=== PATIENT | male | born 1970 | race African-American/Black ===

== ENCOUNTER 2016-09-18 10:09 | Inpatient (IN) | payer MEDICAID, OTHER ==
[~2016-09-18] VITALS: Ht 180.3 cm; Wt 105.7 kg
[2016-09-18] MEDS ORDERED: ACETAMINOPHEN 650MG SUPP PR STA (10:19)
[2016-09-18] MEDS ORDERED: CEFTRIAXONE 1 G PREMIX 50 ML IV ONE ×2 (10:30→12:45)
[2016-09-18] MEDS ORDERED: LEVETIRACETAM 500MG PREMIX 100 ML IV ONE (10:30)
[2016-09-18] MEDS ORDERED: SODIUM CHLORIDE 0.9% 1000ML BAG (SEPSIS BOLUS) IV ONE (10:30)
[2016-09-18 10:54] LABS: BASOPHILS % 0.4 % (0.0-2.0); EOSINOPHILS % 0.1 % (0.0-5.0); HEMATOCRIT. 38.2 % (42.0-52.0); HEMOGLOBIN. 12.7 g/dL (14.0-18.0); LYMPHOCYTES % 7.5 % (20.0-50.0); MEAN CORPUSCULAR HEMOGLOBIN 29.1 pg (28.0-32.0); MEAN CORPUSCULAR VOLUME 87.8 fL (80.0-94.0); MEAN PLATELET VOLUME 8.4 fl (7.4-10.4); PLATELET 237 x1000/uL (130-400); RED BLOOD CELL COUNT 4.36 mill/uL (4.7-6.1); RED CELL DISTRIBUTION WIDTH 14.8 % (11.6-14.6)
[2016-09-18 11:01] LABS: INR 1.1; PROTHROMBIN TIME 11.1 sec
[2016-09-18 11:11] LABS: CARBON DIOXIDE 27 mEq/L (21-32); CHLORIDE 105 mEq/L (98-107)
[2016-09-18] MEDS ORDERED: LORAZEPAM 2MG/ML CPJ ONE (11:12)
[2016-09-18] MEDS ORDERED: MIDAZOLAM HCL 2 MG/2 ML VIAL IV ONE (12:45)
[2016-09-18] MEDS ORDERED: AZITHROMYCIN 500 MG in DEXT 5% WATER 250 ML IV SCH (12:45)
[2016-09-18 12:55] LABS: BG BASE EXCESS 1.2 mmol/L (-2.0-2.0); BG CARBOXYHEMOGLOBIN 0.1 % (0.5-1.5); BG DEOXYHEMOGLOBIN 0.6 % (0.0-5.0); BG FRACTION INSPIRED OXYGEN 100; BG HCO3 ACT 27.1 mmol/L (22.0-26.0); BG METHEMOGLOBIN 0.1 % (0.0-1.5); BG OXYGEN SATURATION 99.4 % (92.0-98.5); BG OXYHEMOGLOBIN 99.2 % (94.0-97.0); BG PCO2 47.6 mmHg (35.0-45.0); BG PH 7.373 (7.350-7.450); BG PO2 253.7 mmHg (75.0-100.0); BG SAMPLE SITE RIGHT RADIAL; BG TIDAL VOLUME(mL) 500 mL; BG TOTAL HEMOGLOBIN 14.1 g/dL (12.0-18.0); BG VENT MODE VENT - A/C; BG VENT RATE 12 set
[2016-09-18 13:45] LABS: CLARITY URINE CLEAR (CLEAR); COLOR URINE YELLOW (YELLOW); KETONES URINE NEGATIVE (NEGATIVE); LEUKOCYTE ESTERASE URINE NEGATIVE (NEGATIVE); NITRITE URINE NEGATIVE (NEGATIVE); OCCULT BLOOD URINE NEGATIVE (NEGATIVE); PH URINE 7.5 (4.5-8.0); PROTEIN URINE 1+ (NEGATIVE); SPECIFIC GRAVITY URINE 1.018 (1.005-1.030); UROBILINOGEN URINE 0.2 E.U./dL (0.2-1.0)
[2016-09-18] MEDS ORDERED: IPRATROPIUM/ALBUTEROL 0.5-3(2.5)MG/3ML NEB HHN PRN (13:45)
[2016-09-18] MEDS ORDERED: LORAZEPAM 2MG/ML CPJ IV ONE ×3 (14:30→15:00)
[2016-09-18] MEDS ORDERED: PHENYTOIN SODIUM 500 MG in SODIUM CHLORIDE 0.9% 50 ML IV NR (17:30)
[2016-09-18] MEDS: LORAZEPAM 2MG/ML CPJ IV PRN (18:31)
[2016-09-18] MEDS: PIPERACILLIN/TAZ 3.375G PREMIX 50 ML IV SCH (18:33)
[2016-09-18] MEDS ORDERED: VANCOMYCIN 1500MG in DEXTROSE 5% WATER 250ML IV NR (20:00)
[2016-09-18] MEDS: IPRATROPIUM/ALBUTEROL 0.5-3(2.5)MG/3ML NEB HHN SCH (21:00)
[2016-09-18] MEDS: PHENYTOIN SODIUM 100MG/2ML VIAL IV SCH (21:50)
[2016-09-18] MEDS: LEVETIRACETAM 500 MG in SODIUM CHLORIDE 0.9% 100 ML IV SCH (21:51)
[2016-09-19] MEDS ORDERED: DEXTROSE 50% WATER 50ML SYRINGE IV PRN (01:00)
[2016-09-19] MEDS ORDERED: NOREPINEPHRINE 4 MG in DEXT 5% WATER 246 ML IV PRN (01:00)
[2016-09-19] MEDS ORDERED: SODIUM CHLORIDE 0.9% 1000ML BAG (SEPSIS BOLUS) IV NR (01:30)
[2016-09-19] MEDS: IPRATROPIUM/ALBUTEROL 0.5-3(2.5)MG/3ML NEB HHN SCH ×4 (01:30→20:33)
[2016-09-19] MEDS: PIPERACILLIN/TAZ 3.375G PREMIX 50 ML IV SCH ×3 (02:56→18:44)
[2016-09-19] MEDS ORDERED: ALBUMIN HUMAN 25GM/100ML (25%) IV NR (03:00)
[2016-09-19] MEDS: PHENYTOIN SODIUM 100MG/2ML VIAL IV SCH ×3 (05:55→21:55)
[2016-09-19] MEDS: BLOOD SUGAR DIAGNOSTIC STRIP TEST SCH ×4 (05:56→23:37)
[2016-09-19] MEDS ORDERED: INSULIN LISPRO 100 UNITS/ML SUBCUT SCH (07:00)
[2016-09-19 07:08] LABS: BASOPHILS % 0.4 % (0.0-2.0); EOSINOPHILS % 0.3 % (0.0-5.0); HEMATOCRIT. 29.9 % (42.0-52.0); HEMOGLOBIN. 9.9 g/dL (14.0-18.0); LYMPHOCYTES % 32.2 % (20.0-50.0); MEAN CORPUSCULAR HEMOGLOBIN 29.3 pg (28.0-32.0); MEAN PLATELET VOLUME 8.3 fl (7.4-10.4); MONOCYTES % 9.2 % (2.0-8.0); NEUTROPHILS % 57.9 % (40.0-76.0); PLATELET 195 x1000/uL (130-400); RED BLOOD CELL COUNT 3.39 mill/uL (4.7-6.1); RED CELL DISTRIBUTION WIDTH 14.8 % (11.6-14.6)
[2016-09-19] MEDS ORDERED: VANCOMYCIN 1 G PREMIX 200 ML IV SCH (09:00)
[2016-09-19] MEDS: LEVETIRACETAM 500 MG in SODIUM CHLORIDE 0.9% 100 ML IV SCH (09:28)
[2016-09-19] MEDS: INSULIN LISPRO 100 UNITS/ML SUBCUT SCH ×3 (12:00→23:37)
[2016-09-19 12:32] LABS: BG BASE EXCESS -0.2 mmol/L (-2.0-2.0); BG CARBOXYHEMOGLOBIN 0.3 % (0.5-1.5); BG DEOXYHEMOGLOBIN 1.7 % (0.0-5.0); BG FRACTION INSPIRED OXYGEN 50; BG HCO3 ACT 25.6 mmol/L (22.0-26.0); BG METHEMOGLOBIN 0.4 % (0.0-1.5); BG OXYGEN SATURATION 98.3 % (92.0-98.5); BG OXYHEMOGLOBIN 97.6 % (94.0-97.0); BG PCO2 47.4 mmHg (35.0-45.0); BG PH 7.351 (7.350-7.450); BG PO2 135.4 mmHg (75.0-100.0); BG SAMPLE SITE RIGHT BRACHIAL; BG TIDAL VOLUME(mL) 500 mL; BG TOTAL HEMOGLOBIN 10.7 g/dL (12.0-18.0); BG VENT MODE VENT - A/C; BG VENT RATE 12 set
[2016-09-19] MEDS: LORAZEPAM 2MG/ML CPJ IV PRN ×3 (13:36→22:51)
[2016-09-19] MEDS: LEVETIRACETAM 750 MG in SODIUM CHLORIDE 0.9% 100 ML IV SCH (20:54)
[2016-09-19] MEDS: ACETAMINOPHEN 650MG/20.3ML UDC PEG PRN (21:55)
[2016-09-20] MEDS ORDERED: VANCOMYCIN 1500MG in DEXTROSE 5% WATER 250ML IV SCH ×2
[2016-09-20] MEDS: PIPERACILLIN/TAZ 3.375G PREMIX 50 ML IV SCH ×3 (01:36→17:32)
[2016-09-20] MEDS: IPRATROPIUM/ALBUTEROL 0.5-3(2.5)MG/3ML NEB HHN SCH ×4 (02:42→20:36)
[2016-09-20] MEDS: PHENYTOIN SODIUM 100MG/2ML VIAL IV SCH ×2 (05:03→13:40)
[2016-09-20] MEDS: INSULIN LISPRO 100 UNITS/ML SUBCUT SCH ×4 (05:08→23:35)
[2016-09-20 08:06] LABS: BG BASE EXCESS 1.9 mmol/L (-2.0-2.0); BG CARBOXYHEMOGLOBIN 0.2 % (0.5-1.5); BG DEOXYHEMOGLOBIN 1.3 % (0.0-5.0); BG FRACTION INSPIRED OXYGEN 40; BG METHEMOGLOBIN 0.4 % (0.0-1.5); BG OXYGEN SATURATION 98.7 % (92.0-98.5); BG OXYHEMOGLOBIN 98.1 % (94.0-97.0); BG PCO2 44.5 mmHg (35.0-45.0); BG PH 7.401 (7.350-7.450); BG PO2 150.2 mmHg (75.0-100.0); BG SAMPLE SITE RIGHT RADIAL; BG TIDAL VOLUME(mL) 500 mL; BG TOTAL HEMOGLOBIN 11.2 g/dL (12.0-18.0); BG VENT MODE VENT - A/C; BG VENT RATE 12 set
[2016-09-20] MEDS: LEVETIRACETAM 750 MG in SODIUM CHLORIDE 0.9% 100 ML IV SCH ×2 (08:51→20:52)
[2016-09-20] MEDS ORDERED: ENOXAPARIN 40MG/0.4ML SYR SUBCUT SCH (09:00)
[2016-09-20] MEDS: BLOOD SUGAR DIAGNOSTIC STRIP TEST SCH ×3 (12:00→23:35)
[2016-09-20 13:31] LABS: BASOPHILS % 0.9 % (0.0-2.0); EOSINOPHILS % 0.9 % (0.0-5.0); HEMATOCRIT. 32.5 % (42.0-52.0); HEMOGLOBIN. 10.8 g/dL (14.0-18.0); LYMPHOCYTES % 30.9 % (20.0-50.0); MEAN CORPUSCULAR HEMOGLOBIN 29.6 pg (28.0-32.0); MEAN CORPUSCULAR VOLUME 89.3 fL (80.0-94.0); MEAN PLATELET VOLUME 8.7 fl (7.4-10.4); MONOCYTES % 8.2 % (2.0-8.0); NEUTROPHILS % 59.1 % (40.0-76.0); PLATELET 210 x1000/uL (130-400); RED BLOOD CELL COUNT 3.64 mill/uL (4.7-6.1); RED CELL DISTRIBUTION WIDTH 14.9 % (11.6-14.6)
[2016-09-20 13:32] LABS: CARBON DIOXIDE 27 mEq/L (21-32); CHLORIDE 113 mEq/L (98-107)
[2016-09-20] MEDS: ACETAMINOPHEN 650MG/20.3ML UDC PEG PRN ×2 (13:40→22:07)
[2016-09-21] MEDS: PHENYTOIN SODIUM 100MG/2ML VIAL IV SCH ×4 (00:06→22:26)
[2016-09-21] MEDS: PIPERACILLIN/TAZ 3.375G PREMIX 50 ML IV SCH ×3 (01:17→17:13)
[2016-09-21] MEDS: INSULIN LISPRO 100 UNITS/ML SUBCUT SCH ×3 (06:00→17:11)
[2016-09-21] MEDS: BLOOD SUGAR DIAGNOSTIC STRIP TEST SCH ×3 (06:00→17:05)
[2016-09-21] MEDS: IPRATROPIUM/ALBUTEROL 0.5-3(2.5)MG/3ML NEB HHN SCH ×3 (08:43→21:12)
[2016-09-21] MEDS: LEVETIRACETAM 750 MG in SODIUM CHLORIDE 0.9% 100 ML IV SCH ×2 (08:51→22:21)
[2016-09-21] MEDS: ENOXAPARIN 30MG/0.3ML SYR SUBCUT SCH ×2 (08:52→22:22)
[2016-09-21] MEDS: ACETAMINOPHEN 650MG/20.3ML UDC PEG PRN (22:21)
[2016-09-22] MEDS: IPRATROPIUM/ALBUTEROL 0.5-3(2.5)MG/3ML NEB HHN SCH ×4 (02:55→20:51)
[2016-09-22] MEDS: PIPERACILLIN/TAZ 3.375G PREMIX 50 ML IV SCH ×4 (02:57→20:40)
[2016-09-22] MEDS: BLOOD SUGAR DIAGNOSTIC STRIP TEST SCH ×4 (05:25→17:07)
[2016-09-22] MEDS: PHENYTOIN 100 MG/4 ML UDC NG SCH ×3 (05:26→20:40)
[2016-09-22] MEDS: INSULIN LISPRO 100 UNITS/ML SUBCUT SCH ×4 (05:26→17:50)
[2016-09-22] MEDS: LEVETIRACETAM 500MG/5ML CUP PO SCH ×2 (08:48→20:26)
[2016-09-22] MEDS: ENOXAPARIN 30MG/0.3ML SYR SUBCUT SCH ×2 (08:48→20:27)
[2016-09-22 09:06] LABS: BASOPHILS % 1.2 % (0.0-2.0); EOSINOPHILS % 3.1 % (0.0-5.0); HEMATOCRIT. 33.4 % (42.0-52.0); HEMOGLOBIN. 11.2 g/dL (14.0-18.0); LYMPHOCYTES % 39.4 % (20.0-50.0); MEAN CORPUSCULAR HEMOGLOBIN 29.9 pg (28.0-32.0); MEAN CORPUSCULAR VOLUME 89.3 fL (80.0-94.0); MEAN PLATELET VOLUME 8.2 fl (7.4-10.4); MONOCYTES % 7.1 % (2.0-8.0); NEUTROPHILS % 49.2 % (40.0-76.0); PLATELET 218 x1000/uL (130-400); RED BLOOD CELL COUNT 3.74 mill/uL (4.7-6.1); RED CELL DISTRIBUTION WIDTH 14.7 % (11.6-14.6)
[2016-09-22 09:19] LABS: CARBON DIOXIDE 27 mEq/L (21-32); CHLORIDE 108 mEq/L (98-107)
[2016-09-22] MEDS ORDERED: PHEN100O2 NG (13:55)
[2016-09-22] MEDS ORDERED: KEPPSOL PO (13:55)
[2016-09-22] MEDS ORDERED: zosyn IV (13:57)
[2016-09-22] MEDS: ACETAMINOPHEN 650MG/20.3ML UDC PEG PRN (20:26)
[2016-09-23] MEDS: IPRATROPIUM/ALBUTEROL 0.5-3(2.5)MG/3ML NEB HHN SCH ×4 (01:42→20:15)
[2016-09-23] MEDS: PIPERACILLIN/TAZ 3.375G PREMIX 50 ML IV SCH ×4 (03:07→21:58)
[2016-09-23 06:00] LABS: CARBON DIOXIDE 28 mEq/L (21-32); CHLORIDE 107 mEq/L (98-107)
[2016-09-23] MEDS: INSULIN LISPRO 100 UNITS/ML SUBCUT SCH ×4 (06:00→18:00)
[2016-09-23] MEDS: BLOOD SUGAR DIAGNOSTIC STRIP TEST SCH ×4 (06:14→18:38)
[2016-09-23] MEDS: PHENYTOIN 100 MG/4 ML UDC NG SCH ×3 (06:14→21:59)
[2016-09-23 07:05] LABS: BASOPHILS % 0.8 % (0.0-2.0); EOSINOPHILS % 3.7 % (0.0-5.0); HEMATOCRIT. 33.7 % (42.0-52.0); HEMOGLOBIN. 11.2 g/dL (14.0-18.0); LYMPHOCYTES % 33.8 % (20.0-50.0); MEAN CORPUSCULAR HEMOGLOBIN 29.7 pg (28.0-32.0); MONOCYTES % 8.5 % (2.0-8.0); NEUTROPHILS % 53.2 % (40.0-76.0); PLATELET 210 x1000/uL (130-400); RED BLOOD CELL COUNT 3.79 mill/uL (4.7-6.1); RED CELL DISTRIBUTION WIDTH 14.8 % (11.6-14.6)
[2016-09-23] MEDS ORDERED: CEFEPIME IV (08:18)
[2016-09-23] MEDS: ENOXAPARIN 30MG/0.3ML SYR SUBCUT SCH ×2 (08:46→21:58)
[2016-09-23] MEDS: LEVETIRACETAM 500MG/5ML CUP PO SCH ×2 (08:46→21:58)
[2016-09-23] MEDS: CEFEPIME 1,000 MG in DEXTROSE 5% WATER 50 ML IV SCH ×2 (10:12→21:58)
[2016-09-23] MEDS: ACETAMINOPHEN 650MG/20.3ML UDC PEG PRN (16:42)
[2016-09-23] MEDS ORDERED: POLYVINYL ALCOHOL OPHTH DROPS 15ML BOTHEYE SCH (19:30)
[2016-09-24] MEDS: BLOOD SUGAR DIAGNOSTIC STRIP TEST SCH ×3 (00:32→12:17)
[2016-09-24] MEDS: IPRATROPIUM/ALBUTEROL 0.5-3(2.5)MG/3ML NEB HHN SCH ×3 (02:25→14:23)
[2016-09-24] MEDS: PIPERACILLIN/TAZ 3.375G PREMIX 50 ML IV SCH ×2 (04:25→10:35)
[2016-09-24] MEDS: INSULIN LISPRO 100 UNITS/ML SUBCUT SCH ×3 (06:00→12:00)
[2016-09-24] MEDS: PHENYTOIN 100 MG/4 ML UDC NG SCH (06:14)
[2016-09-24] MEDS: LEVETIRACETAM 500MG/5ML CUP PO SCH (08:36)
[2016-09-24] MEDS: ENOXAPARIN 30MG/0.3ML SYR SUBCUT SCH (08:36)
[2016-09-24] MEDS: CEFEPIME 1,000 MG in DEXTROSE 5% WATER 50 ML IV SCH (08:36)
[2016-09-24 12:00] VITALS: BP 126/66
[2016-09-24] MEDS ORDERED: POLYVINYL ALCOHOL OPHTH DROPS 15ML BOTHEYE SCH (21:00)
== END 2016-09-24 16:35 | DRG 720 ==
LOC: ER 10:15 → 5EST 12:43 → EDBEDREQSVC 14:30 → ENRESERV 14:31 → MICUSO 09-19 04:00 → 5EST 09-20 22:07
PROVIDERS: ADMIT Family Medicine; ATTEND Family Medicine
PROC: 5A1955Z Respiratory Ventilation, Greater than 96 Consecutive Hours (ICD-10-PCS; principal; 2016-09-18)
PROC: 02HV33Z Insertion of Infusion Device into Superior Vena Cava, Percutaneous Approach (ICD-10-PCS; 2016-09-19)
PROC: B548ZZA Ultrasonography of Superior Vena Cava, Guidance (ICD-10-PCS; 2016-09-19)
DX: A41.9 Sepsis, unspecified organism (principal); J96.20 Acute and chronic respiratory failure, unspecified whether with hypoxia or hypercapnia; J69.0 Pneumonitis due to inhalation of food and vomit; G93.49 Other encephalopathy; Z99.11 Dependence on respirator [ventilator] status; N17.9 Acute kidney failure, unspecified; Z93.0 Tracheostomy status; D64.9 Anemia, unspecified; E11.9 Type 2 diabetes mellitus without complications; I10 Essential (primary) hypertension; G40.901 Epilepsy, unspecified, not intractable, with status epilepticus; E66.9 Obesity, unspecified; Z74.01 Bed confinement status; Z83.3 Family history of diabetes mellitus; Z87.820 Personal history of traumatic brain injury; Z84.89 Family history of other specified conditions; Z68.32 Body mass index [BMI] 32.0-32.9, adult
CPT/HCPCS: 36415; 36569; 36600; 70450; 70551; 71010; 76937; 80048; 80053; 80185; 81001; 82375; 82542; 82805; 82962; 83605; 83690; 84484; 85025; 85610; 87040; 87070; 87077; 87086; 87186; 93005; 93306; 93970; 94003; 94640; 96365; 96366; 96368; 96375; 99291; A6261; C1725; J0456; J0692; J0696; J1165; J1650; J1953; J2060; J2250; J2543; J3370; J3490; J7030; J7040; J7050; J7060; J7620; P9047; A4315

== ENCOUNTER 2018-04-16 13:08 | Inpatient (IN) | payer MEDICAID, OTHER ==
[~2018-04-16] VITALS: Ht 185.4 cm; Wt 101.2 kg
[2018-04-16] MEDS: PIPERACILLIN/TAZ 3.375G PREMIX 50 ML IV SCH ×2 (11:20→23:20)
[~2018-04-16 13:08] MED LIST: CEFEPIME IV; KEPPSOL PO; PHEN100O2 NG
[2018-04-16] MEDS ORDERED: PIPERACILLIN/TAZ 3.375G PREMIX 50 ML IV ONE (13:30)
[2018-04-16] MEDS ORDERED: SODIUM CHLORIDE 0.9% 1000ML BAG (SEPSIS BOLUS) IV ONE (13:30)
[2018-04-16] MEDS ORDERED: VANCOMYCIN 1 G PREMIX 200 ML IV ONE (13:30)
[2018-04-16 13:52] LABS: CHLORIDE 100 mEq/L (98-107); INR 1.1; PROTHROMBIN TIME 10.7 sec (9.1-11.1)
[2018-04-16 14:01] LABS: BASOPHILS % 0.3 % (0.0-2.0); EOSINOPHILS % 0.1 % (0.0-5.0); HEMATOCRIT. 44.3 % (42.0-52.0); HEMOGLOBIN. 14.8 g/dL (14.0-18.0); LYMPHOCYTES % 7.9 % (20.0-50.0); MEAN CORPUSCULAR HEMOGLOBIN 29.7 pg (28.0-32.0); MEAN PLATELET VOLUME 8.1 fl (7.4-10.4); MONOCYTES % 3.7 % (2.0-8.0); PLATELET 226 x1000/uL (130-400); RED BLOOD CELL COUNT 4.97 mill/uL (4.7-6.1); RED CELL DISTRIBUTION WIDTH 14.1 % (11.6-14.6)
[2018-04-16] MEDS ORDERED: MORPHINE SULFATE 4 MG/ML CPJ (NOT FOR IM USE) IV ONE (14:30)
[2018-04-16] MEDS ORDERED: ONDANSETRON HCL 4MG/2ML INJ IV ONE (14:30)
[2018-04-16 15:21] LABS: CLARITY URINE CLOUDY (CLEAR); COLOR URINE DARK YELLOW (YELLOW); KETONES URINE TRACE (NEGATIVE); LEUKOCYTE ESTERASE URINE TRACE (NEGATIVE); NITRITE URINE NEGATIVE (NEGATIVE); OCCULT BLOOD URINE 1+ (NEGATIVE); PH URINE 5.5 (4.5-8.0); PROTEIN URINE 3+ (NEGATIVE); SPECIFIC GRAVITY URINE 1.031 (1.005-1.030)
[2018-04-16] MEDS ORDERED: ACETAMINOPHEN 650MG SUPP PR ONE (15:45)
[2018-04-16] MEDS ORDERED: ACETAMINOPHEN 325MG TABLET GT PRN (17:00)
[2018-04-16] MEDS ORDERED: ONDANSETRON HCL 4MG/2ML INJ IV PRN (17:00)
[2018-04-16] MEDS ORDERED: CLONIDINE 0.1MG TABLET PO PRN (17:00)
[2018-04-16] MEDS ORDERED: VANCOMYCIN 1 G PREMIX 200 ML IV NR (21:07)
[2018-04-16] MEDS ORDERED: PHENYTOIN 100 MG/4 ML UDC NG NR (21:08)
[2018-04-17] VITALS (7 sets, daily range): BP systolic 114–129; BP diastolic 68–77
[2018-04-17] MEDS ORDERED: VANCOMYCIN 1 G PREMIX 200 ML IV SCH (05:00)
[2018-04-17] MEDS ORDERED: PIPERACILLIN/TAZ 3.375G PREMIX 50 ML IV SCH ×2 (07:00→11:00)
[2018-04-17] MEDS: PHENYTOIN 100 MG/4 ML UDC NG SCH ×2 (11:14→21:30)
[2018-04-17] MEDS: ENOXAPARIN 40MG/0.4ML SYR SUBCUT SCH (11:15)
[2018-04-17] MEDS: LOSARTAN POTASSIUM 50 MG TABLET GT SCH (11:17)
[2018-04-17 11:18] LABS: BG BASE EXCESS -0.8 mmol/L (-2.0-2.0); BG CARBOXYHEMOGLOBIN 0.9 % (0.5-1.5); BG DEOXYHEMOGLOBIN 3.6 % (0.0-5.0); BG HCO3 ACT 23.8 mmol/L (22.0-26.0); BG METHEMOGLOBIN 0.3 % (0.0-1.5); BG OXYGEN SATURATION 96.4 % (92.0-98.5); BG OXYHEMOGLOBIN 95.2 % (94.0-97.0); BG PH 7.403 (7.350-7.450); BG PO2 81.9 mmHg (75.0-100.0); BG SAMPLE SITE RIGHT RADIAL; BG TIDAL VOLUME(mL) 450 mL; BG TOTAL HEMOGLOBIN 12.7 g/dL (12.0-18.0); BG VENT MODE VENT - A/C; BG VENT RATE 14 set
[2018-04-17] MEDS ORDERED: CRAN3875 PEG (11:43)
[2018-04-17] MEDS ORDERED: DOCU-138 PEG (11:43)
[2018-04-17] MEDS ORDERED: NA P230E RC (11:43)
[2018-04-17] MEDS ORDERED: MOM PEG (11:43)
[2018-04-17] MEDS ORDERED: LOSA50TA20 PEG (11:43)
[2018-04-17] MEDS ORDERED: MULT-379 MT (11:43)
[2018-04-17] MEDS ORDERED: ACET-2178 PEG (11:43)
[2018-04-17] MEDS ORDERED: BISA10SU62 RC (11:43)
[2018-04-17] MEDS ORDERED: CLON0.1T PEG (11:43)
[2018-04-17] MEDS ORDERED: DEXTROSE 50% WATER 50ML SYRINGE IV PRN (11:45)
[2018-04-17] MEDS: INSULIN LISPRO 100 UNITS/ML SUBCUT SCH ×3 (12:00→23:42)
[2018-04-17] MEDS: BLOOD SUGAR DIAGNOSTIC STRIP TEST SCH ×3 (12:03→23:42)
[2018-04-17] MEDS: IPRATROPIUM BROMIDE (0.02%) 0.5MG/2.5ML NEB HHN SCH ×3 (12:08→20:39)
[2018-04-17] MEDS ORDERED: INSULIN LISPRO 100 UNITS/ML SUBCUT SCH (13:00)
[2018-04-17] MEDS: VANCOMYCIN 1250MG in DEXTROSE 5% WATER 250ML IV SCH ×2 (13:32→21:30)
[2018-04-17] MEDS: ACETYLCYSTEINE 100MG/ML 10% VIAL 4ML INH SCH (15:40)
[2018-04-17] MEDS: PIPERACILLIN SODIUM/TAZOBACTAM 4.5 G in DEXT 5% WATER 100 ML IV SCH ×2 (18:03→23:41)
[2018-04-17] MEDS: LEVETIRACETAM 500MG/5ML CUP GT SCH (21:30)
[2018-04-18] VITALS (8 sets, daily range): BP systolic 111–121; BP diastolic 69–79
[2018-04-18] MEDS: IPRATROPIUM BROMIDE (0.02%) 0.5MG/2.5ML NEB HHN SCH ×6 (00:29→20:07)
[2018-04-18 05:59] LABS: CHLORIDE 106 mEq/L (98-107)
[2018-04-18] MEDS: PIPERACILLIN SODIUM/TAZOBACTAM 4.5 G in DEXT 5% WATER 100 ML IV SCH ×3 (06:01→17:10)
[2018-04-18] MEDS: VANCOMYCIN 1250MG in DEXTROSE 5% WATER 250ML IV SCH (06:02)
[2018-04-18 06:07] LABS: VANCOMYCIN TROUGH 34.6 ug/mL (5.0-10.0)
[2018-04-18 06:12] LABS: BASOPHILS % 0.2 % (0.0-2.0); HEMOGLOBIN. 12.7 g/dL (14.0-18.0); LYMPHOCYTES % 8.2 % (20.0-50.0); MEAN CORPUSCULAR HEMOGLOBIN 29.4 pg (28.0-32.0); MEAN CORPUSCULAR VOLUME 89.9 fL (80.0-94.0); MEAN PLATELET VOLUME 8.2 fl (7.4-10.4); MONOCYTES % 5.1 % (2.0-8.0); NEUTROPHILS % 84.5 % (40.0-76.0); PLATELET 200 x1000/uL (130-400); RED BLOOD CELL COUNT 4.33 mill/uL (4.7-6.1); RED CELL DISTRIBUTION WIDTH 14.3 % (11.6-14.6)
[2018-04-18] MEDS: BLOOD SUGAR DIAGNOSTIC STRIP TEST SCH ×3 (06:24→17:10)
[2018-04-18] MEDS: INSULIN LISPRO 100 UNITS/ML SUBCUT SCH ×3 (06:24→17:37)
[2018-04-18] MEDS: ACETYLCYSTEINE 100MG/ML 10% VIAL 4ML INH SCH ×2 (08:18→15:30)
[2018-04-18] MEDS: LEVETIRACETAM 500MG/5ML CUP GT SCH ×2 (08:53→21:00)
[2018-04-18] MEDS: PHENYTOIN 100 MG/4 ML UDC NG SCH ×2 (08:53→21:00)
[2018-04-18] MEDS: ENOXAPARIN 40MG/0.4ML SYR SUBCUT SCH (08:53)
[2018-04-18] MEDS: LOSARTAN POTASSIUM 50 MG TABLET GT SCH (08:54)
[2018-04-18] MEDS: POLYVINYL ALCOHOL OPHTH DROPS 15ML BOTHEYE SCH ×2 (15:01→22:00)
[2018-04-18] MEDS ORDERED: INSULIN GLARGINE UD 100 UNITS/ML SYR SUBCUT SCH (22:00)
[2018-04-19] VITALS (12 sets, daily range): BP systolic 104–127; BP diastolic 57–85
[2018-04-19] MEDS: IPRATROPIUM BROMIDE (0.02%) 0.5MG/2.5ML NEB HHN SCH ×5 (00:39→15:51)
[2018-04-19] MEDS: ACETYLCYSTEINE 100MG/ML 10% VIAL 4ML INH SCH ×4 (00:39→23:55)
[2018-04-19] MEDS: PIPERACILLIN SODIUM/TAZOBACTAM 4.5 G in DEXT 5% WATER 100 ML IV SCH ×5 (06:38→17:26)
[2018-04-19] MEDS: POLYVINYL ALCOHOL OPHTH DROPS 15ML BOTHEYE SCH ×3 (06:38→22:42)
[2018-04-19] MEDS: INSULIN LISPRO 100 UNITS/ML SUBCUT SCH ×4 (06:39→17:30)
[2018-04-19] MEDS: BLOOD SUGAR DIAGNOSTIC STRIP TEST SCH ×4 (06:39→17:31)
[2018-04-19 07:22] LABS: BASOPHILS % 0.4 % (0.0-2.0); EOSINOPHILS % 4.4 % (0.0-5.0); HEMATOCRIT. 37.9 % (42.0-52.0); HEMOGLOBIN. 12.5 g/dL (14.0-18.0); LYMPHOCYTES % 13.5 % (20.0-50.0); MEAN CORPUSCULAR HEMOGLOBIN 29.4 pg (28.0-32.0); MEAN CORPUSCULAR VOLUME 89.2 fL (80.0-94.0); NEUTROPHILS % 76.7 % (40.0-76.0); PLATELET 205 x1000/uL (130-400); RED BLOOD CELL COUNT 4.25 mill/uL (4.7-6.1); RED CELL DISTRIBUTION WIDTH 14.6 % (11.6-14.6)
[2018-04-19] MEDS: LOSARTAN POTASSIUM 50 MG TABLET GT SCH (09:07)
[2018-04-19] MEDS: LEVETIRACETAM 500MG/5ML CUP GT SCH ×2 (09:08→22:42)
[2018-04-19] MEDS: PHENYTOIN 100 MG/4 ML UDC NG SCH ×2 (09:08→22:42)
[2018-04-19] MEDS: ENOXAPARIN 40MG/0.4ML SYR SUBCUT SCH (09:08)
[2018-04-19 11:02] LABS: CHLORIDE 110 mEq/L (98-107)
[2018-04-19] MEDS: VANCOMYCIN 1250MG in DEXTROSE 5% WATER 250ML IV SCH (13:38)
[2018-04-19] MEDS: IPRATROPIUM/ALBUTEROL 0.5-3(2.5)MG/3ML NEB INH PRN ×2 (20:09→23:55)
[2018-04-20] VITALS (13 sets, daily range): BP systolic 105–134; BP diastolic 63–89
[2018-04-20] MEDS: PIPERACILLIN SODIUM/TAZOBACTAM 4.5 G in DEXT 5% WATER 100 ML IV SCH ×4 (01:06→18:00)
[2018-04-20] MEDS: INSULIN GLARGINE UD 100 UNITS/ML SYR SUBCUT SCH ×2 (01:06→23:24)
[2018-04-20] MEDS: IPRATROPIUM BROMIDE (0.02%) 0.5MG/2.5ML NEB HHN SCH ×5 (03:42→20:36)
[2018-04-20] MEDS: VANCOMYCIN 1250MG in DEXTROSE 5% WATER 250ML IV SCH (06:32)
[2018-04-20] MEDS: POLYVINYL ALCOHOL OPHTH DROPS 15ML BOTHEYE SCH ×3 (06:45→21:01)
[2018-04-20] MEDS: INSULIN LISPRO 100 UNITS/ML SUBCUT SCH ×5 (06:46→23:24)
[2018-04-20] MEDS: BLOOD SUGAR DIAGNOSTIC STRIP TEST SCH ×4 (06:46→18:00)
[2018-04-20] MEDS: ACETYLCYSTEINE 100MG/ML 10% VIAL 4ML INH SCH ×2 (07:40→15:39)
[2018-04-20 08:00] LABS: BASOPHILS % 0.6 % (0.0-2.0); EOSINOPHILS % 5.4 % (0.0-5.0); HEMATOCRIT. 40.1 % (42.0-52.0); HEMOGLOBIN. 12.9 g/dL (14.0-18.0); LYMPHOCYTES % 16.5 % (20.0-50.0); MEAN CORPUSCULAR VOLUME 90.5 fL (80.0-94.0); MEAN PLATELET VOLUME 8.1 fl (7.4-10.4); MONOCYTES % 6.8 % (2.0-8.0); NEUTROPHILS % 70.7 % (40.0-76.0); PLATELET 221 x1000/uL (130-400); RED BLOOD CELL COUNT 4.44 mill/uL (4.7-6.1); RED CELL DISTRIBUTION WIDTH 14.6 % (11.6-14.6)
[2018-04-20 08:05] LABS: CHLORIDE 109 mEq/L (98-107)
[2018-04-20] MEDS: PHENYTOIN 100 MG/4 ML UDC NG SCH ×2 (10:25→21:01)
[2018-04-20] MEDS: ENOXAPARIN 40MG/0.4ML SYR SUBCUT SCH (10:26)
[2018-04-20] MEDS: LOSARTAN POTASSIUM 50 MG TABLET GT SCH (10:27)
[2018-04-20] MEDS: LEVETIRACETAM 500MG/5ML CUP GT SCH ×2 (10:27→21:01)
[2018-04-20] MEDS ORDERED: SODIUM CHLORIDE 0.45% 1,000 ML IV SCH (10:30)
== END 2018-04-21 00:07 | DRG 720 ==
LOC: ER 13:08 → 5EST 15:07 → EDBEDREQ 15:08 → ENRESERV 04-17 07:53
PROVIDERS: ADMIT Internal Medicine; ATTEND Internal Medicine
PROC: 5A1955Z Respiratory Ventilation, Greater than 96 Consecutive Hours (ICD-10-PCS; principal; 2018-04-16)
DX: A41.9 Sepsis, unspecified organism (principal); J95.851 Ventilator associated pneumonia; Z99.11 Dependence on respirator [ventilator] status; G93.49 Other encephalopathy; J96.10 Chronic respiratory failure, unspecified whether with hypoxia or hypercapnia; Z93.0 Tracheostomy status; E11.65 Type 2 diabetes mellitus with hyperglycemia; N39.0 Urinary tract infection, site not specified; G40.909 Epilepsy, unspecified, not intractable, without status epilepticus; I10 Essential (primary) hypertension; B96.5 Pseudomonas (aeruginosa) (mallei) (pseudomallei) as the cause of diseases classified elsewhere; D64.9 Anemia, unspecified; R65.20 Severe sepsis without septic shock; Z79.4 Long term (current) use of insulin; Z79.899 Other long term (current) drug therapy; Z87.820 Personal history of traumatic brain injury; Z93.1 Gastrostomy status
CPT/HCPCS: 36415; 36600; 71045; 80048; 80202; 82375; 82805; 82962; 83605; 84145; 84484; 87070; 87077; 87186; 93005; 96365; 96375; 99291; A6261; J1650; J1815; J2270; J2405; J2543; J3370; J7030; J7040; J7060; J7608; J7620

== ENCOUNTER 2020-09-17 14:06 | Inpatient (IN) | payer MEDICAID ==
[~2020-09-17] VITALS: Ht 190.5 cm; Wt 106.6 kg
[2020-09-17] MEDS ORDERED: PIPERACILLIN/TAZ 3.375G PREMIX 50 ML IV ONE (14:15)
[2020-09-17] MEDS ORDERED: SODIUM CHLORIDE 0.9% 1000ML BAG (SEPSIS BOLUS) IV ONE (14:15)
[2020-09-17] MEDS ORDERED: VANCOMYCIN 1 G PREMIX 200 ML IV ONE (14:15)
[2020-09-17] MEDS ORDERED: DEXAMETHASONE 10 MG/ML VIAL IV ONE (14:30)
[2020-09-17 16:19] LABS: HEMATOCRIT. 35.7 % (42.0-52.0); HEMOGLOBIN. 11.9 g/dL (14.0-18.0); MEAN CORPUSCULAR HEMOGLOBIN 29.4 pg (28.0-32.0); MEAN CORPUSCULAR VOLUME 88.3 fL (80.0-94.0); MEAN PLATELET VOLUME 8.1 fl (7.4-10.4); PLATELET 462 x1000/uL (130-400); RED BLOOD CELL COUNT 4.04 mill/uL (4.7-6.1); RED CELL DISTRIBUTION WIDTH 15.4 % (11.6-14.6)
[2020-09-17 16:20] LABS: BG BASE EXCESS 4.6 mmol/L (-2.0-2.0); BG CARBOXYHEMOGLOBIN 0.3 % (0.5-1.5); BG HCO3 ACT 31.3 mmol/L (22.0-26.0); BG METHEMOGLOBIN 0.3 % (0.0-1.5); BG OXYHEMOGLOBIN 98.4 % (94.0-97.0); BG PCO2 56.2 mmHg (35.0-45.0); BG PH 7.364 (7.350-7.450); BG PO2 156.2 mmHg (75.0-100.0); BG SAMPLE SITE LEFT FEMORAL; BG TOTAL HEMOGLOBIN 13.1 g/dL (12.0-18.0); BG VENT MODE VENT- PRVC
[2020-09-17 16:25] LABS: CHLORIDE 104 mEq/L (98-107)
[2020-09-17 16:28] LABS: INR 1.1
[2020-09-17 17:13] LABS: PLATELET ESTIMATE INCREASED
[2020-09-17] MEDS ORDERED: LORAZEPAM 2MG/ML CPJ IV PRN (17:15)
[2020-09-17] MEDS ORDERED: IPRATROPIUM/ALBUTEROL 0.5-3(2.5)MG/3ML NEB NEB PRN (17:15)
[2020-09-17] MEDS: SODIUM CHLORIDE 0.9% 1,000 ML IV SCH (17:15)
[2020-09-17] MEDS ORDERED: DIPHENHYDRAMINE 50MG/ML VIAL IV PRN (17:15)
[2020-09-17] MEDS ORDERED: ACETAMINOPHEN 325MG TABLET GT PRN ×2 (17:15)
[2020-09-17] MEDS ORDERED: BLOOD SUGAR DIAGNOSTIC STRIP TEST SCH (17:15)
[2020-09-17] MEDS ORDERED: ONDANSETRON HCL 4MG/2ML INJ IV PRN (17:15)
[2020-09-17] MEDS ORDERED: DEXTROSE 50% WATER 50ML SYRINGE IV PRN (17:15)
[2020-09-17] MEDS ORDERED: HYDRALAZINE 20MG/ML VIAL IV PRN (17:15)
[2020-09-17] MEDS ORDERED: VANCOMYCIN 1 G PREMIX 200 ML IV SCH (17:15)
[2020-09-17 17:34] LABS: CLARITY URINE CLEAR (CLEAR); COLOR URINE YELLOW (YELLOW); KETONES URINE NEGATIVE (NEGATIVE); LEUKOCYTE ESTERASE URINE 1+ (NEGATIVE); NITRITE URINE NEGATIVE (NEGATIVE); OCCULT BLOOD URINE TRACE (NEGATIVE); PROTEIN URINE 3+ (NEGATIVE); SPECIFIC GRAVITY URINE 1.019 (1.005-1.030); UROBILINOGEN URINE 0.2 E.U./dL (0.2-1.0)
[2020-09-17] MEDS: PANTOPRAZOLE SODIUM 40 MG/VIAL IV SCH ×2 (18:07→18:29)
[2020-09-17] MEDS ORDERED: INSULIN LISPRO 100 UNITS/ML SUBCUT SCH (18:20)
[2020-09-17] MEDS: ENOXAPARIN 40MG/0.4ML SYR SUBCUT SCH (19:56)
[2020-09-17] MEDS: PHENYTOIN 100 MG/4 ML UDC GT SCH (20:16)
[2020-09-17] MEDS: BACLOFEN 10MG TABLET GT SCH ×2 (20:16→20:47)
[2020-09-17] MEDS ORDERED: IBUPROFEN 100MG/5ML UDC PO NR (20:45)
[2020-09-17] MEDS: IPRATROPIUM/ALBUTEROL 0.5-3(2.5)MG/3ML NEB HHN SCH (20:53)
[2020-09-17] MEDS ORDERED: VANCOMYCIN 1 G PREMIX 200 ML IV NR (21:00)
[2020-09-17] MEDS ORDERED: NOREPINEPHRINE 8MG/250ML PMX 250 ML IV PRN (22:15)
[2020-09-17 23:05] VITALS: BP 102/63
[2020-09-17 23:30] VITALS: BP 103/65
[2020-09-17] MEDS: BLOOD SUGAR DIAGNOSTIC STRIP TEST SCH (23:56)
[2020-09-18] VITALS (86 sets, daily range): BP systolic 58–120; BP diastolic 31–100
[2020-09-18] MEDS: INSULIN LISPRO 100 UNITS/ML SUBCUT SCH ×5 (00:01→23:38)
[2020-09-18] MEDS: SODIUM CHLORIDE 0.9% 1,000 ML IV SCH ×3 (00:10→21:43)
[2020-09-18] MEDS: PHENYLEPHRINE 100 MG in DEXT 5% WATER 240 ML IV PRN ×3 (01:53→21:03)
[2020-09-18] MEDS: INSULIN GLARGINE UD 100 UNITS/ML SYR SUBCUT SCH ×2 (03:53→21:44)
[2020-09-18] MEDS: IPRATROPIUM/ALBUTEROL 0.5-3(2.5)MG/3ML NEB HHN SCH ×4 (04:28→20:43)
[2020-09-18] MEDS: PHENYTOIN 100 MG/4 ML UDC GT SCH ×2 (05:39→18:34)
[2020-09-18] MEDS: BLOOD SUGAR DIAGNOSTIC STRIP TEST SCH ×4 (05:39→23:38)
[2020-09-18 06:04] LABS: CHLORIDE 106 mEq/L (98-107)
[2020-09-18 06:05] LABS: HEMATOCRIT. 32.9 % (42.0-52.0); HEMOGLOBIN. 10.4 g/dL (14.0-18.0); MEAN CORPUSCULAR HEMOGLOBIN 28.2 pg (28.0-32.0); MEAN CORPUSCULAR VOLUME 89.6 fL (80.0-94.0); MEAN PLATELET VOLUME 8.5 fl (7.4-10.4); PLATELET 468 x1000/uL (130-400); RED BLOOD CELL COUNT 3.67 mill/uL (4.7-6.1); RED CELL DISTRIBUTION WIDTH 15.9 % (11.6-14.6)
[2020-09-18 06:21] LABS: PHOSPHORUS 3.7 mg/dL (2.5-4.9)
[2020-09-18] MEDS ORDERED: ALBU6.7H11 INH (07:25)
[2020-09-18] MEDS ORDERED: CLON0.1T PO (07:25)
[2020-09-18] MEDS ORDERED: CHLO473M2 MT (07:25)
[2020-09-18] MEDS ORDERED: CRAN425C6 PO (07:25)
[2020-09-18] MEDS ORDERED: DOCU-138 PO (07:25)
[2020-09-18] MEDS ORDERED: ACET160S MT (07:25)
[2020-09-18] MEDS ORDERED: LOSA50TA3 PO (07:25)
[2020-09-18] MEDS ORDERED: B50 GT (07:25)
[2020-09-18] MEDS ORDERED: BACL-141 PO (07:25)
[2020-09-18] MEDS ORDERED: SODIUM BICARBONATE 8.4% 1 MEQ/ML 50ML SYR IV SCH (07:30)
[2020-09-18] MEDS: PIPERACILLIN/TAZOBACTAM 2.25G in DEXTROSE 5% WATER 50ML IV SCH ×4 (07:42→23:41)
[2020-09-18] MEDS ORDERED: SODIUM POLYSTYRENE SULFONATE 15 G/60 ML BOT PO SCH (08:00)
[2020-09-18 09:41] LABS: BG BASE EXCESS 1.9 mmol/L (-2.0-2.0); BG CARBOXYHEMOGLOBIN 0.3 % (0.5-1.5); BG DEOXYHEMOGLOBIN 0.8 % (0.0-5.0); BG FRACTION INSPIRED OXYGEN 70; BG HCO3 ACT 27.2 mmol/L (22.0-26.0); BG METHEMOGLOBIN 0.2 % (0.0-1.5); BG OXYGEN SATURATION 99.2 % (92.0-98.5); BG OXYHEMOGLOBIN 98.7 % (94.0-97.0); BG PCO2 45.6 mmHg (35.0-45.0); BG PH 7.394 (7.350-7.450); BG PO2 202.9 mmHg (75.0-100.0); BG SAMPLE SITE RIGHT RADIAL; BG VENT MODE VENT- PRVC
[2020-09-18] MEDS ORDERED: PIPERACILLIN/TAZOBACTAM 3.375 G/VIAL IV SCH (10:00)
[2020-09-18 13:04] LABS: PLATELET ESTIMATE SLIGHTLY INCREASED
[2020-09-18] MEDS: BACLOFEN 10MG TABLET GT SCH (18:00)
[2020-09-18] MEDS: ENOXAPARIN 40MG/0.4ML SYR SUBCUT SCH (18:35)
[2020-09-19] VITALS (84 sets, daily range): BP systolic 87–121; BP diastolic 53–92
[2020-09-19] MEDS: IPRATROPIUM/ALBUTEROL 0.5-3(2.5)MG/3ML NEB HHN SCH ×4 (02:22→20:55)
[2020-09-19] MEDS: INSULIN LISPRO 100 UNITS/ML SUBCUT SCH ×4 (05:09→23:44)
[2020-09-19] MEDS: BLOOD SUGAR DIAGNOSTIC STRIP TEST SCH ×4 (05:09→23:04)
[2020-09-19] MEDS: PHENYTOIN 100 MG/4 ML UDC GT SCH ×2 (05:13→17:50)
[2020-09-19] MEDS: BACLOFEN 10MG TABLET GT SCH ×2 (05:13→18:18)
[2020-09-19] MEDS: PIPERACILLIN/TAZOBACTAM 2.25G in DEXTROSE 5% WATER 50ML IV SCH ×4 (05:13→23:43)
[2020-09-19 06:09] LABS: HEMATOCRIT. 30.4 % (42.0-52.0); MEAN CORPUSCULAR HEMOGLOBIN 28.8 pg (28.0-32.0); MEAN CORPUSCULAR VOLUME 87.9 fL (80.0-94.0); MEAN PLATELET VOLUME 8.3 fl (7.4-10.4); PLATELET 309 x1000/uL (130-400); RED BLOOD CELL COUNT 3.46 mill/uL (4.7-6.1)
[2020-09-19 06:11] LABS: CHLORIDE 110 mEq/L (98-107)
[2020-09-19 06:21] LABS: PHOSPHORUS 2.6 mg/dL (2.5-4.9)
[2020-09-19 06:23] LABS: CREATINE KINASE 587 IU/L (39-308)
[2020-09-19] MEDS: SODIUM CHLORIDE 0.9% 1,000 ML IV SCH ×2 (08:42→19:15)
[2020-09-19] MEDS ORDERED: POTASSIUM CHLORIDE INJ 40 MEQ in DEXT 5% WATER 250 ML IV SCH (09:00)
[2020-09-19 12:59] LABS: PLATELET ESTIMATE NORMAL
[2020-09-19] MEDS: ACETYLCYSTEINE 100MG/ML 10% VIAL 4ML INH SCH ×2 (15:29→20:55)
[2020-09-19] MEDS: PANTOPRAZOLE SODIUM 40 MG/VIAL IV SCH (16:56)
[2020-09-19] MEDS: ENOXAPARIN 30MG/0.3ML SYR SUBCUT SCH (16:57)
[2020-09-19] MEDS: INSULIN GLARGINE UD 100 UNITS/ML SYR SUBCUT SCH (23:52)
[2020-09-20] VITALS (43 sets, daily range): BP systolic 95–136; BP diastolic 58–86
[2020-09-20] MEDS: IPRATROPIUM/ALBUTEROL 0.5-3(2.5)MG/3ML NEB HHN SCH ×4 (01:01→20:18)
[2020-09-20 04:48] LABS: HEMATOCRIT. 27.6 % (42.0-52.0); MEAN CORPUSCULAR HEMOGLOBIN 28.4 pg (28.0-32.0); MEAN PLATELET VOLUME 8.4 fl (7.4-10.4); PLATELET 267 x1000/uL (130-400); RED BLOOD CELL COUNT 3.18 mill/uL (4.7-6.1); RED CELL DISTRIBUTION WIDTH 15.9 % (11.6-14.6)
[2020-09-20 05:09] LABS: PHOSPHORUS 2.1 mg/dL (2.5-4.9)
[2020-09-20] MEDS: PHENYTOIN 100 MG/4 ML UDC GT SCH ×2 (05:18→17:51)
[2020-09-20] MEDS: PIPERACILLIN/TAZOBACTAM 2.25G in DEXTROSE 5% WATER 50ML IV SCH ×3 (05:18→18:31)
[2020-09-20] MEDS: SODIUM CHLORIDE 0.9% 1,000 ML IV SCH (05:18)
[2020-09-20] MEDS: BACLOFEN 10MG TABLET GT SCH ×2 (05:18→17:51)
[2020-09-20] MEDS: BLOOD SUGAR DIAGNOSTIC STRIP TEST SCH ×3 (05:18→17:51)
[2020-09-20] MEDS: INSULIN LISPRO 100 UNITS/ML SUBCUT SCH ×3 (05:19→17:52)
[2020-09-20 08:03] LABS: BG BASE EXCESS 2.6 mmol/L (-2.0-2.0); BG CARBOXYHEMOGLOBIN 0.3 % (0.5-1.5); BG DEOXYHEMOGLOBIN 1.4 % (0.0-5.0); BG FRACTION INSPIRED OXYGEN 40; BG HCO3 ACT 27.3 mmol/L (22.0-26.0); BG METHEMOGLOBIN 0.3 % (0.0-1.5); BG OXYGEN SATURATION 98.6 % (92.0-98.5); BG PCO2 42.7 mmHg (35.0-45.0); BG PH 7.423 (7.350-7.450); BG PO2 138.6 mmHg (75.0-100.0); BG SAMPLE SITE RIGHT RADIAL; BG TOTAL HEMOGLOBIN 9.7 g/dL (12.0-18.0); BG TOTAL RESPIRATORY RATE 16 b/min; BG VENT MODE VENT-PRVC
[2020-09-20] MEDS: ACETYLCYSTEINE 100MG/ML 10% VIAL 4ML INH SCH ×2 (08:34→20:18)
[2020-09-20] MEDS: SODIUM CHLORIDE 0.45% 1,000 ML IV SCH ×2 (09:46→23:55)
[2020-09-20] MEDS ORDERED: POTASSIUM PHOS,M-BASIC-D-BASIC 15 MMOL in DEXT 5% WATER 245 ML IV SCH (11:00)
[2020-09-20 12:14] LABS: PLATELET ESTIMATE NORMAL
[2020-09-20] MEDS ORDERED: POTASSIUM CHLORIDE INJ 40 MEQ in DEXT 5% WATER 250 ML IV SCH (16:00)
[2020-09-20] MEDS: PANTOPRAZOLE SODIUM 40 MG/VIAL IV SCH (16:48)
[2020-09-20] MEDS: ENOXAPARIN 30MG/0.3ML SYR SUBCUT SCH (16:48)
[2020-09-20] MEDS: INSULIN GLARGINE UD 100 UNITS/ML SYR SUBCUT SCH (21:30)
[2020-09-21] VITALS (12 sets, daily range): BP systolic 94–124; BP diastolic 49–71
[2020-09-21] MEDS: PIPERACILLIN/TAZOBACTAM 2.25G in DEXTROSE 5% WATER 50ML IV SCH ×5 (00:56→23:12)
[2020-09-21] MEDS: INSULIN LISPRO 100 UNITS/ML SUBCUT SCH ×5 (00:58→23:12)
[2020-09-21] MEDS: IPRATROPIUM/ALBUTEROL 0.5-3(2.5)MG/3ML NEB HHN SCH ×4 (01:41→21:26)
[2020-09-21] MEDS: PHENYTOIN 100 MG/4 ML UDC GT SCH ×2 (05:18→18:10)
[2020-09-21] MEDS: BACLOFEN 10MG TABLET GT SCH (05:19)
[2020-09-21] MEDS: BLOOD SUGAR DIAGNOSTIC STRIP TEST SCH ×5 (05:19→23:12)
[2020-09-21] MEDS ORDERED: VANCOMYCIN 1 G PREMIX 200 ML IV SCH (06:00)
[2020-09-21 06:23] LABS: BASOPHILS % 0.5 % (0.0-2.0); EOSINOPHILS % 7.7 % (0.0-5.0); HEMATOCRIT. 29.6 % (42.0-52.0); HEMOGLOBIN. 9.7 g/dL (14.0-18.0); LYMPHOCYTES % 7.8 % (20.0-50.0); MEAN CORPUSCULAR HEMOGLOBIN 28.7 pg (28.0-32.0); MEAN CORPUSCULAR VOLUME 87.7 fL (80.0-94.0); MEAN PLATELET VOLUME 8.3 fl (7.4-10.4); MONOCYTES % 3.6 % (2.0-8.0); NEUTROPHILS % 80.4 % (40.0-76.0); PLATELET 258 x1000/uL (130-400); RED BLOOD CELL COUNT 3.38 mill/uL (4.7-6.1); RED CELL DISTRIBUTION WIDTH 15.9 % (11.6-14.6)
[2020-09-21 06:41] LABS: PHOSPHORUS 2.3 mg/dL (2.5-4.9)
[2020-09-21] MEDS: ACETYLCYSTEINE 100MG/ML 10% VIAL 4ML INH SCH ×3 (07:41→21:26)
[2020-09-21 08:48] LABS: BG BASE EXCESS 2.9 mmol/L (-2.0-2.0); BG CARBOXYHEMOGLOBIN 0.3 % (0.5-1.5); BG DEOXYHEMOGLOBIN 0.7 % (0.0-5.0); BG FRACTION INSPIRED OXYGEN 40; BG HCO3 ACT 28.5 mmol/L (22.0-26.0); BG METHEMOGLOBIN 0.5 % (0.0-1.5); BG OXYGEN SATURATION 99.3 % (92.0-98.5); BG OXYHEMOGLOBIN 98.5 % (94.0-97.0); BG PCO2 48.7 mmHg (35.0-45.0); BG PH 7.385 (7.350-7.450); BG PO2 296.3 mmHg (75.0-100.0); BG SAMPLE SITE RIGHT RADIAL; BG TOTAL HEMOGLOBIN 9.7 g/dL (12.0-18.0); BG VENT MODE PRVC
[2020-09-21] MEDS: FAMOTIDINE 20MG/2ML VIAL IV SCH (09:19)
[2020-09-21] MEDS: ENOXAPARIN 30MG/0.3ML SYR SUBCUT SCH (16:00)
[2020-09-21] MEDS: SODIUM CHLORIDE 0.45% 1,000 ML IV SCH (16:00)
[2020-09-21] MEDS: MIDODRINE HCL 5MG TABLET PO SCH (17:24)
[2020-09-21] MEDS: INSULIN GLARGINE UD 100 UNITS/ML SYR SUBCUT SCH (21:48)
[2020-09-22] VITALS (13 sets, daily range): BP systolic 92–122; BP diastolic 46–71
[2020-09-22] MEDS: SODIUM CHLORIDE 0.45% 1,000 ML IV SCH ×3 (01:24→23:16)
[2020-09-22] MEDS: IPRATROPIUM/ALBUTEROL 0.5-3(2.5)MG/3ML NEB HHN SCH ×4 (02:06→20:02)
[2020-09-22] MEDS: BLOOD SUGAR DIAGNOSTIC STRIP TEST SCH ×4 (05:21→23:16)
[2020-09-22] MEDS: PIPERACILLIN/TAZOBACTAM 2.25G in DEXTROSE 5% WATER 50ML IV SCH ×4 (05:21→23:15)
[2020-09-22] MEDS: INSULIN LISPRO 100 UNITS/ML SUBCUT SCH ×4 (05:21→23:16)
[2020-09-22] MEDS: PHENYTOIN 100 MG/4 ML UDC GT SCH ×2 (05:22→17:14)
[2020-09-22 08:43] LABS: BG BASE EXCESS 1.9 mmol/L (-2.0-2.0); BG CARBOXYHEMOGLOBIN 0.3 % (0.5-1.5); BG FRACTION INSPIRED OXYGEN 35; BG HCO3 ACT 27.2 mmol/L (22.0-26.0); BG METHEMOGLOBIN 0.5 % (0.0-1.5); BG OXYHEMOGLOBIN 98.2 % (94.0-97.0); BG PCO2 45.9 mmHg (35.0-45.0); BG PO2 154.8 mmHg (75.0-100.0); BG SAMPLE SITE LEFT RADIAL; BG TOTAL HEMOGLOBIN 9.2 g/dL (12.0-18.0); BG VENT MODE PRVC
[2020-09-22] MEDS: FAMOTIDINE 20MG/2ML VIAL IV SCH (08:44)
[2020-09-22] MEDS: MIDODRINE HCL 5MG TABLET PO SCH ×4 (08:45→16:09)
[2020-09-22] MEDS: ENOXAPARIN 30MG/0.3ML SYR SUBCUT SCH (16:09)
[2020-09-22] MEDS: ACETYLCYSTEINE 100MG/ML 10% VIAL 4ML INH SCH (20:03)
[2020-09-22] MEDS: INSULIN GLARGINE UD 100 UNITS/ML SYR SUBCUT SCH (23:15)
[2020-09-23] VITALS (12 sets, daily range): BP systolic 100–155; BP diastolic 50–81
[2020-09-23] MEDS: IPRATROPIUM/ALBUTEROL 0.5-3(2.5)MG/3ML NEB HHN SCH ×3 (02:34→14:13)
[2020-09-23] MEDS: BLOOD SUGAR DIAGNOSTIC STRIP TEST SCH ×2 (05:06→12:00)
[2020-09-23] MEDS: PIPERACILLIN/TAZOBACTAM 2.25G in DEXTROSE 5% WATER 50ML IV SCH ×2 (05:06→13:54)
[2020-09-23] MEDS: INSULIN LISPRO 100 UNITS/ML SUBCUT SCH ×2 (05:06→12:00)
[2020-09-23] MEDS: PHENYTOIN 100 MG/4 ML UDC GT SCH (05:07)
[2020-09-23 06:02] LABS: CHLORIDE 117 mEq/L (98-107)
[2020-09-23 06:10] LABS: PHOSPHORUS 2.7 mg/dL (2.5-4.9)
[2020-09-23 06:14] LABS: HEMATOCRIT. 25.2 % (42.0-52.0); HEMOGLOBIN. 8.3 g/dL (14.0-18.0); MEAN CORPUSCULAR HEMOGLOBIN 28.6 pg (28.0-32.0); MEAN CORPUSCULAR VOLUME 86.8 fL (80.0-94.0); MEAN PLATELET VOLUME 8.9 fl (7.4-10.4); PLATELET 220 x1000/uL (130-400); RED BLOOD CELL COUNT 2.91 mill/uL (4.7-6.1); RED CELL DISTRIBUTION WIDTH 15.8 % (11.6-14.6)
[2020-09-23] MEDS: ACETYLCYSTEINE 100MG/ML 10% VIAL 4ML INH SCH (08:43)
[2020-09-23] MEDS: FAMOTIDINE 20MG/2ML VIAL IV SCH (09:09)
[2020-09-23] MEDS: MIDODRINE HCL 5MG TABLET PO SCH ×2 (09:10→13:54)
[2020-09-23] MEDS: SODIUM CHLORIDE 0.45% 1,000 ML IV SCH (09:12)
[2020-09-23] MEDS ORDERED: VANCOMYCIN 750 MG PREMIX 150 ML IV SCH (11:00)
[2020-09-23 13:24] LABS: PLATELET ESTIMATE NORMAL
[2020-09-23] MEDS ORDERED: POTASSIUM CHLORIDE INJ 40 MEQ in DEXT 5%/0.2% NACL 1,000 ML IV SCH (15:30)
[2020-09-23] MEDS ORDERED: MORPHINE SULFATE 250 MG in DEXT 5% WATER 225 ML IV PRN (16:00)
[2020-09-23] MEDS ORDERED: KCL 20MEQ/100ML PREMIX 100 ML IV NR (16:00)
[2020-09-23] MEDS: MORPHINE SULFATE 250 MG in SODIUM CHLORIDE 0.9% 225 ML IV PRN (16:44)
[2020-09-23] MEDS ORDERED: MIDODRINE HCL 5MG TABLET PO SCH (17:00)
[2020-09-23] MEDS ORDERED: LEVOFLOXACIN 500MG PREMIX 100 ML IV SCH (17:00)
[2020-09-24] VITALS (8 sets, daily range): BP systolic 111–143; BP diastolic 61–82
[2020-09-24] MEDS: MORPHINE SULFATE 250 MG in SODIUM CHLORIDE 0.9% 225 ML IV PRN ×3 (02:12→14:11)
[2020-09-24 06:39] LABS: HEMATOCRIT. 30.2 % (42.0-52.0); HEMOGLOBIN. 9.7 g/dL (14.0-18.0); MEAN CORPUSCULAR HEMOGLOBIN 28.4 pg (28.0-32.0); MEAN CORPUSCULAR VOLUME 88.7 fL (80.0-94.0); MEAN PLATELET VOLUME 8.7 fl (7.4-10.4); PLATELET 279 x1000/uL (130-400); RED BLOOD CELL COUNT 3.41 mill/uL (4.7-6.1); RED CELL DISTRIBUTION WIDTH 15.7 % (11.6-14.6)
[2020-09-24 07:07] LABS: PHOSPHORUS 5.2 mg/dL (2.5-4.9)
[2020-09-24 12:25] LABS: PLATELET ESTIMATE NORMAL
[2020-09-24] MEDS ORDERED: LEVOFLOXACIN 250MG PREMIX 50 ML IV SCH (17:00)
[2020-09-24] MEDS ORDERED: DEXTROSE 5% WATER 1,000 ML IV SCH (20:45)
[2020-09-25] VITALS: BP 108/54
[2020-09-25] MEDS: MORPHINE SULFATE 250 MG in SODIUM CHLORIDE 0.9% 225 ML IV PRN ×2 (01:30→12:43)
[2020-09-25 04:00] VITALS: BP 105/55
[2020-09-25 08:00] VITALS: BP 105/56
[2020-09-25 08:49] LABS: PHOSPHORUS 5.3 mg/dL (2.5-4.9)
[2020-09-25 12:00] VITALS: BP 98/45
[2020-09-25 12:06] LABS: HEMOGLOBIN. 10.8 g/dL (14.0-18.0); MEAN CORPUSCULAR HEMOGLOBIN 29.1 pg (28.0-32.0); MEAN CORPUSCULAR VOLUME 91.6 fL (80.0-94.0); MEAN PLATELET VOLUME 8.9 fl (7.4-10.4); PLATELET 260 x1000/uL (130-400); RED BLOOD CELL COUNT 3.71 mill/uL (4.7-6.1)
[2020-09-25 13:15] LABS: PLATELET ESTIMATE NORMAL
[2020-09-25 16:00] VITALS: BP 108/52
[2020-09-25 20:00] VITALS: BP 109/47
== END 2020-09-25 22:07 | DRG 720 ==
LOC: ER 14:06 → EDBEDREQ 16:01 → EDBEDREQTM 16:01 → ENRESERV 19:23 → CANRESERV 19:23 → ENRESERV 21:32 → MICUSO 22:55 → MICUNO 09-19 17:05 → 5EST 09-20 12:02 → 6EST 09-24 10:20
PROVIDERS: ADMIT Internal Medicine; ATTEND Internal Medicine
PROC: 5A1955Z Respiratory Ventilation, Greater than 96 Consecutive Hours (ICD-10-PCS; principal; 2020-09-17)
PROC: 06HY33Z Insertion of Infusion Device into Lower Vein, Percutaneous Approach (ICD-10-PCS; 2020-09-17)
DX: A41.9 Sepsis, unspecified organism (principal); J96.21 Acute and chronic respiratory failure with hypoxia; R65.21 Severe sepsis with septic shock; G93.41 Metabolic encephalopathy; J95.851 Ventilator associated pneumonia; E43 Unspecified severe protein-calorie malnutrition; J18.9 Pneumonia, unspecified organism; L89.159 Pressure ulcer of sacral region, unspecified stage; L89.224 Pressure ulcer of left hip, stage 4; N17.9 Acute kidney failure, unspecified; N39.0 Urinary tract infection, site not specified; R13.10 Dysphagia, unspecified; G40.909 Epilepsy, unspecified, not intractable, without status epilepticus; E86.0 Dehydration; N18.9 Chronic kidney disease, unspecified; E87.5 Hyperkalemia; E87.2 Acidosis; Z66 Do not resuscitate; D64.9 Anemia, unspecified; E87.0 Hyperosmolality and hypernatremia; E87.1 Hypo-osmolality and hyponatremia; Z20.822 Contact with and (suspected) exposure to COVID-19; Z51.5 Encounter for palliative care; I12.9 Hypertensive chronic kidney disease with stage 1 through stage 4 chronic kidney disease, or unspecified chronic kidney disease; E11.22 Type 2 diabetes mellitus with diabetic chronic kidney disease; E11.51 Type 2 diabetes mellitus with diabetic peripheral angiopathy without gangrene; Z93.0 Tracheostomy status; Z82.49 Family history of ischemic heart disease and other diseases of the circulatory system; Z87.820 Personal history of traumatic brain injury; Z93.1 Gastrostomy status; Z87.440 Personal history of urinary (tract) infections
CPT/HCPCS: 36415; 36600; 71045; 76770; 80048; 80053; 80185; 80202; 81003; 82040; 82375; 82550; 82805; 82962; 83036; 83605; 83735; 83880; 84100; 84134; 84145; 84484; 85025; 85651; 86140; 87070; 87077; 87186; 87493; 93005; 93923; 93970; 94002; 94003; 94640; 99291; A6261; C9113; J1100; J1650; J1815; J1956; J2270; J2370; J2543; J3370; J3480; J3490; J7030; J7050; J7060; J7608; U0003; U0005